=== PATIENT | male | born 1990 | race Caucasian/White ===

== ENCOUNTER 2019-04-30 15:08 | Emergency (ER) | payer OTHER ==
[~2019-04-30] VITALS: Ht 172.7 cm; Wt 147.4 kg
[~2019-04-30 15:08] MED LIST: ANUSOL1 EACH RC; ANUSOL1 EACH RE; AZITHROMYCIN 2250 MG PO; BENADRYL25 MG PO; CHERATUSSIN AC118 ML PO; CITRATE OF MAG296 ML PO; COLACE100 MG PO; IBUPROFEN 800800 M1 PO; KEFLEX500 MG PO; NOHOMEMEDICATIONS; OMEPRAZOLE5 GM PO; PREDNISONE 20 M20 MG PO; PROMETHAZINE-C120 ML PO; ULTRAM 50MG TAB50 MG PO; ZPAK PO
[2019-04-30 16:22] LABS: ABSOLUTE NEUTROPHILS 5.7 thou/uL (1.4-8.2); BASOPHILS 0.7 % (0.0-2.0); EOSINOPHILS 5.3 % (0.0-3.0); HEMATOCRIT 46.8 % (42.0-52.0); HEMOGLOBIN 15.5 gm/dL (14.0-18.0); LYMPHOCYTES 24.9 % (24.0-44.0); MCH 28.9 pg (26.0-34.0); MCHC 33.1 g/dL (28.0-37.0); MCV 87.3 fL (80.0-100.0); MONOCYTES 5.4 % (1.0-8.0); PLATELET COUNT 191 thou/uL (150-400); POLYS 63.7 % (36.0-66.0); RBC 5.36 mil/uL (4.50-6.00); RDW 13.9 % (10.5-14.5)
[2019-04-30 16:30] LABS: ANION GAP 7 mmol/L (7-16); BUN 13 mg/dL (7-18); CALCIUM 8.9 mg/dL (8.5-10.1); CHLORIDE 105 mmol/L (98-107); CO2 28 mmol/L (21-32); GLUCOSE 118 mg/dL (74-106); POTASSIUM 3.7 mmol/L (3.5-5.1); SODIUM 140 mmol/L (136-145)
[2019-04-30 16:38] LABS: TROPONIN-I <0.06 ng/mL (<0.06)
[2019-04-30] MEDS ORDERED: TESSALON PERLE100 MG PO (16:58)
[2019-04-30] MEDS ORDERED: VENTOLIN HFA 1818 GM INH (16:58)
[2019-04-30] MEDS ORDERED: PREDNISONE 20 M20 MG PO (16:58)
[2019-04-30 17:53] VITALS: BP 129/67
--- NOTE | 2019-05-01 08:02 | EKG ---
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
== END 2019-04-30 17:56 | disposition home or self-care (01) ==
LOC: ER 15:08
PROVIDERS: Emergency Medicine
DX: J21.9 Acute bronchiolitis, unspecified (principal); R42 Dizziness and giddiness; K21.9 Gastro-esophageal reflux disease without esophagitis; F17.210 Nicotine dependence, cigarettes, uncomplicated; Z90.89 Acquired absence of other organs; Z98.890 Other specified postprocedural states; Z88.0 Allergy status to penicillin